=== PATIENT | male | born 1980 | race Caucasian/White ===

== ENCOUNTER 2023-09-30 22:23 | Emergency (ER) | payer OTHER, SELFPAY ==
[2023-09-30 22:25] VITALS: BP 132/92
[2023-09-30 23:12] LABS: % Basophils 0.5 % (0-2); % Immature Granulocytes 0.2 % (0-0.5); % Lymphocytes 33.6 % (20.5-51.1); % Monocytes 8.7 % (1.7-9.3); Absolute Eosinophils 0.1 10^3/uL (0-0.7); Absolute Lymphocytes 2.2 10^3/uL (1.2-3.4); Absolute Monocytes 0.6 10^3/uL (0.1-0.6); Absolute Neutrophils 3.6 10^3/uL (1.4-6.5); Hematocrit 38.8 % (39.0-52.0); Hemoglobin 13.8 g/dL (13.0-18.0); Mean Corp Hgb Conc. 35.6 g/dL (33.0-37.0); Mean Corpuscular Hgb 28.9 pg (27.0-31.0); Mean Corpuscular Volume 81.2 fL (80.0-94.0); Mean Platelet Volume 9.2 fL (7.4-10.4); Nucleated Red Blood Cells % 0 % (-); Platelet Count 269 10^3/uL (130-400); Red Blood Cell Count 4.78 10^6/uL (4.70-6.10); Red Cell Dist. Width 12.9 % (11.5-14.5); White Blood Cell Count 6.6 10^3/uL (4.8-10.8)
[2023-09-30 23:26] LABS: ALT (SGPT) 38 U/L (0-50); AST (SGOT) 32 U/L (17-59); Albumin 4.3 g/dl (3.5-5.0); Alkaline Phosphatase 61 U/L (38-126); Blood Urea Nitrogen 10 mg/dl (9-20); Calcium 9.3 mg/dl (8.4-10.2); Carbon Dioxide 22 mmol/L (22-30); Chloride 108 mmol/L (98-107); Glucose 94 mg/dl (70-99); Potassium 4.1 mmol/L (3.5-5.1); Sodium 139 mmol/L (135-145); Total Bilirubin 0.7 mg/dl (0.2-1.3); eGFR > 60.00
[2023-09-30 23:37] LABS: Troponin I < 0.012 ng/ml
--- NOTE | 2023-10-01 00:09 | ED.GENMED ---
History of Present Illness
General
Chief Complaint: Heart Rate Problem
Source: patient
Exam Limitations: none
Time Seen by Provider: 09/30/23 22:54
Nursing documentation reviewed up to this point in time: agreed with
Travel History
Have you had any contact with someone who has COVID-19?: No
Do you have any symptoms of coronavirus? Fever > 100 degrees, chills, cough, shortness of breath, sore throat, loss of taste or smell, muscle aches, or headache?: No
History of Present Illness
History of Present Illness:
43-year-old male with no significant past medical history states he woke up at 7:15 AM and noted that he had mid back pain and mid chest pain for a few moments then it happened again a couple times through the day. He also felt 'off,' and his watch
intermittently with saying 'A-fib.'
He was traveling a lot over the weekend and was driving for 10 hours in a car. He had a very stressful work week with layoffs, he also had his child's graduation.
Past History
Past History
ED Past Medical History: None
ED Past Surgical History: None
Social History
Tobacco: Non-smoker
Alcohol: None
Personal:
Living: with family
Employment: Employed
Review of Systems
Review of Systems
Allergies reviewed?: Yes
All Other Systems: ROS reviewed and negative except as documented in HPI and ROS
Constitutional: Denies fever or fatigue
Respiratory: Denies trouble breathing
Cardiac: Reports chest pain; Denies diaphoresis, palpitations or syncope
ABD/GI: Denies abdominal pain, nausea, vomiting or diarrhea
: Denies dysuria or difficulty voiding
Musculoskeletal: Reports back pain (Mid back pain)
Skin: Reports no symptoms
Neurological: Reports no symptoms
Phy Exam
Physical Exam
Physical Exam:
GENERAL: No acute distress. A&Ox3.
CONSTITUTIONAL: Afebrile.
EYES: PERRL, conjunctivae normal
ENMT: moist mucus membranes, Pharynx nl
RESPIRATORY: Regular respirations, nonlabored, lungs clear.
CARDIOVASCULAR: Regular rate and rhythm, no murmurs, no rubs.
GI: Soft, nontender, normal BS
MUSCULOSKELETAL: Deep palpation of thoracic back muscles immediately reproduces his back pain. Moves with ease. Well perfused.
SKIN: Warm, dry, pink
PSYCH: Normal mood and affect. Well kept, interactive and appropriate
NEUROLOGIC: Awake, alert and oriented. No focal neurological deficits
Course
Orders/Labs/Results
Orders:
Orders
09/30/23 22:25
ECG [Electrocardiogram (*1)] Urgent
Reason for Study: Chest Pain
EKG- Treatment ONCE
09/30/23 23:07
Complete Blood Count/With Diff Urgent
Comprehensive Metabolic Panel Urgent
Troponin I Urgent
10/01/23 00:09
CR Chest - 2 Views Urgent
Comment:
Reason For Exam: Chest pain
Abnormal Lab Results
09/30/23
23:07
Hct 38.8 L %
(39.0-52.0)
Chloride 108 H mmol/L
(98-107)
09/30/23 23:07
09/30/23 23:07
Vital Signs
Initial and Last Documented VS:
Initial Vital Signs
Temp Pulse BP Pulse Ox
98.1 F 73 132/92 95
09/30/23 22:25 09/30/23 22:25 09/30/23 22:25 09/30/23 22:25
Last Documented Vital Signs
Temp Pulse Resp BP Pulse Ox
98.1 F 66 15 132/92 96
09/30/23 22:25 10/01/23 00:00 10/01/23 00:00 09/30/23 22:25 10/01/23 00:00
MDM/Problems Addressed
Differential Diagnosis Includes:
CA, musculoskeletal pain, stress
MDM/Problems Addressed:
43-year-old male with no significant past medical history states he woke up at 7:15 AM and noted that he had mid back pain and mid chest pain for a few moments then it happened again a couple times through the day. He also felt 'off,' and his watch
intermittently with saying 'A-fib.'
He was traveling a lot over the weekend and was driving for 10 hours in a car. He had a very stressful work week with layoffs, he also had his child's graduation.
CBC normal
CMP normal
Troponin normal
EKG NSR
Chest x-ray NAD
Patient's back pain is clearly musculoskeletal, no indication of cardiac etiology of his symptoms. He does admit to an extreme amount of stress over the past week and this as well as recent long car ride certainly may contribute to his symptoms.
*Critical Care Note
Total Time (30-74mins, 75-104mins- exclusive of procedures): Not Applicable
ED Attending Note
-
Portions of this chart may have been created with voice recognition software.� Occasional wrong word or��sound alike� substitutions may have occurred due to the inherent limitations of voice recognition software.
Discharge Plan
Departure
Patient Disposition: Home (Routine Discharge)
Patient with high blood pressure during this ER visit?: No
Condition: Good
Discharge Problem:
Musculoskeletal back pain, Stress, Atypical chest pain
Instructions: Chest pain, Musculoskeletal Pain
Referrals:
[facility] [Other] - As needed
Activity Restrictions/Additional Instructions:
As we discussed, your workup here today is negative for anything worrisome specifically no indication of a heart attack
Your back muscles are very tight, massage, heating pad, warm shower.
See your doctor if your symptoms are not 100% resolved in one week
Return here immediately for worsening chest pain, chest pain associated with sweating, nausea, weakness, dizziness or feeling sicker in any way
Interventions
Interventions:
*Risk Screen - Suicide Last Done: 09/30/23 22:25
*General Assessment Last Done: 10/01/23 00:10
*Neglect/Abuse Screening Last Done: 09/30/23 22:25
ED- Fall Risk Assessment Last Done: 09/30/23 23:15
*ED COVID-19 Vaccine History Last Done: 10/01/23 00:34
*Nursing Disposition Last Done: 10/01/23 00:33
ED- Cardiac Assessment Last Done: 09/30/23 23:15
ED- Pulmonary Assessment Last Done: 09/30/23 23:15
Discharge Date and Time
Discharge Date/Time: 10/01/23 00:34
Print Language: UPPER SORBIAN
== END 2023-10-01 00:34 | disposition home or self-care (01) ==
LOC: EMR 22:23
PROVIDERS: Registered Nurse; EMERGENCY PHYSICIAN Emergency Medicine; FAMILY PHYSICIAN Family Medicine
DX: M54.9 Dorsalgia, unspecified (principal); F43.9 Reaction to severe stress, unspecified; R07.89 Other chest pain
CPT/HCPCS: 99283; 71046; 80053; 84484; 85025; 93005